=== PATIENT | female | born 1970 | race Caucasian/White ===

== ENCOUNTER 2017-05-19 11:18 | Emergency (ER) | payer MEDICAID | END 2017-05-19 13:45 | disposition home or self-care (01) | DX: R55 Syncope and collapse (principal); R42 Dizziness and giddiness; E87.1 Hypo-osmolality and hyponatremia; E87.6 Hypokalemia; D64.9 Anemia, unspecified; I10 Essential (primary) hypertension; F32.9 Major depressive disorder, single episode, unspecified; Z98.890 Other specified postprocedural states; Z79.899 Other long term (current) drug therapy ==